=== PATIENT | male | born 1995 | race Caucasian/White ===

== ENCOUNTER 2020-11-25 12:29 | Emergency (ER) | payer BC, OTHER ==
[2020-11-25 12:43] VITALS: BP 127/81; PULSE 83; TEMP 98.5; BMI 25.0
== END 2020-11-25 13:38 | disposition home or self-care (01) ==
LOC: FER 12:29
DX: R31.9 Hematuria, unspecified (principal)
CPT/HCPCS: 36415; 81003; 87086; 87491; 87591; 99283-25